=== PATIENT | male | born 1965 | race Caucasian/White ===

== ENCOUNTER 2017-08-01 09:07 | Day surgery (SDC) | payer BC ==
[2017-07-27 11:57] VITALS: BMI 27.7
[~2017-08-01 09:07] MED LIST: LACTATED RINGERS 1,000 ML IV SCH
[2017-08-01 10:54] VITALS: TEMP 97.2
[2017-08-01] MEDS ORDERED: LIDOCAINE 1% 20 ML VIAL (10MG/ML) FOR IV START INTRADERMA ONE (10:55)
[2017-08-01] MEDS ORDERED: PROPOFOL 10 MG/ML 20 ML VIAL IV ONE (11:53)
--- NOTE | 2017-08-01 11:56 | P.GSHP ---
History of Present Illness H&P Date: 08/01/17 Chief Complaint: GERD, screening colonoscopy This is a 52-year-old male for from Dr. Rick Albert. Patient presents today for EGD and colonoscopy. He's had issues with GERD. He has a strong family history of colon cancer with his father having colon cancer. Past Medical History Additional Past Medical History / Comment(s): KIDNEY STONES. History of Any Multi-Drug Resistant Organisms: None Reported Past Surgical History: Cholecystectomy Additional Past Surgical History / Comment(s): FUNMILAYO FUNDOPLICATION, LITHOTRIPSY Past Anesthesia/Blood Transfusion Reactions: No Reported Reaction Past Psychological History: Depression Smoking Status: Never smoker Past Alcohol Use History: Occasional Past Drug Use History: None Reported - Past Family History Father Family Medical History: Cancer Additional Family Medical History / Comment(s): COLON CANCER Medications and Allergies Home Medications Medication Instructions Recorded Confirmed Type Escitalopram [Lexapro] 20 mg PO DAILY 07/27/17 08/01/17 History Glucosam/Steffen-Msm1/C/Alfred/Bosw 1 each PO DAILY 07/27/17 08/01/17 History [Glucosamine-Chondroitin Tablet] Ibuprofen [Motrin] 600 mg PO Q8HR PRN 07/27/17 07/27/17 History Iron (Unknown Dose) 1 tab PO DAILY 07/27/17 07/27/17 History Lysine (Unknown Dose) 1 tab PO DAILY 07/27/17 08/01/17 History Multivitamins, Thera [Multivitamin 1 tab PO DAILY 07/27/17 08/01/17 History (formulary)] [place]-3 Fatty Acids/Fish Oil [Fish 1 each PO DAILY 07/27/17 08/01/17 History Oil 1,000 mg Softgel] Allergies Allergy/AdvReac Type Severity Reaction Status Date / Time No Known Allergies Allergy Verified 07/27/17 11:46 Surgical - Exam Vital Signs Temp Pulse Resp BP Pulse Ox 97.2 F L 64 16 129/85 99 08/01/17 10:52 08/01/17 10:52 08/01/17 10:52 08/01/17 10:52 08/01/17 10:52 - General well developed, no distress - Eyes PERRL - ENT normal pinna - Neck no masses - Respiratory normal expansion - Cardiovascular Rhythm: regular - Abdomen Abdomen: soft, non tender Assessment and Plan Plan: History of GERD. We'll perform EGD. Family history: Cancer. We'll perform screening colonoscopy.
[2017-08-01 12:29] VITALS: RESP 18
--- NOTE | 2017-08-01 12:38 | P.OP ---
Date of Procedure: 08/01/17 Preoperative Diagnosis: GERD Screening colonoscopy Postoperative Diagnosis: Diverticulosis ( No evidence of hiatal hernia No evidence of esophagitis Procedure(s) Performed: EGD Colonoscopy Anesthesia: MAC Surgeon: Edmond Santos Pathology: other (Antrum) Condition: stable Disposition: PACU Description of Procedure: Patient's placed on the endoscopy table in the lateral position. He received IV sedation. The gastroscope placed oropharynx and passed into the esophagus and into the stomach. Scope was then placed through the pylorus. The first and second portion of the duodenum appeared normal. Scope was then brought back the antrum this. Mildly inflamed. A biopsies performed. Scope was retroflexed and remainder of the stomach appeared normal. The hiatus was examined. There is no evidence of hiatal hernias. The GE junction was at 40 cm s. The distal esophagus appeared normal. The proximal esophagus appeared normal. Scope was then withdrawn for patient. Next digital rectal exam was performed which revealed no abnormalities. The flexible colonoscope was then placed patient anus passed throughout the entire colon. The ileocecal valve was visualized. Cecum, ascending and transverse colon appeared normal. In the descending and sigmoid colon there was evidence of diverticulosis without evidence of diverticulitis. The scope was then brought back the rectum. The rectum appeared normal. Scope was withdrawn for patient.
[2017-08-01 12:59] VITALS: BP 119/76; PULSE 50
== END 2017-08-01 12:58 | disposition home or self-care (01) ==
LOC: ORWHC2ENDO 09:07
PROVIDERS: ATTEND Surgery
DX: Z12.11 Encounter for screening for malignant neoplasm of colon (principal); K29.50 Unspecified chronic gastritis without bleeding; K57.30 Diverticulosis of large intestine without perforation or abscess without bleeding; K21.9 Gastro-esophageal reflux disease without esophagitis; Z80.0 Family history of malignant neoplasm of digestive organs; F32.9 Major depressive disorder, single episode, unspecified; N20.0 Calculus of kidney; Z79.899 Other long term (current) drug therapy
CPT/HCPCS: 88305; 88342; 43239; G0105; J2704

== ENCOUNTER → 2017-09-14 | Outpatient (CLI) | payer BC ==
--- NOTE | 2017-09-14 17:57 | US ---
EXAMINATION TYPE: US kidneys/renal and bladder DATE OF EXAM: 09/14/2017 COMPARISON: 09/14/2016 CLINICAL HISTORY: N20.0 Kidney Stones. EXAM MEASUREMENTS: Right Kidney: 12.7 x 5.1 x 5.6 cm Left Kidney: 11.7 x 5.9 x 6.6 cm Right Kidney: No hydronephrosis or masses seen Left Kidney: No hydronephrosis or masses seen, no definite stone seen. Bladder: wnl Bilateral Jets seen: only right jet seen in 3 minutes of scan time IMPRESSION: No hydronephrosis. No evidence of renal mass. Symmetric normal-appearing kidneys. No evidence of orlin l obstruction. No adverse change compared to old exam.
== END ==
LOC: RADUSWWP 16:27
PROVIDERS: ATTEND Urology
DX: N20.0 Calculus of kidney (principal)
CPT/HCPCS: 76770

== ENCOUNTER → 2019-09-17 | Outpatient (CLI) | payer OTHER ==
--- NOTE | 2019-09-18 08:07 | US ---
EXAMINATION TYPE: US renals and bladder DATE OF EXAM: 09/17/2019 COMPARISON: US 09/14/2017 CLINICAL HISTORY: N20.0 KIDNEYS STONES. Calculus of kidney. Hx lithotripsy. EXAM MEASUREMENTS: Right Kidney: 11.9 x 6.5 x 6.0 cm Left Kidney: 12.1 x 5.2 x 5.5 cm Right Kidney: No hydronephrosis or masses seen Left Kidney: No hydronephrosis or masses seen. Hypoechoic crescentic area left kidney is unchanged fr om 2017 represents perinephric fat stranding. Bladder: Not fully distended. Bilateral Jets seen: Yes IMPRESSION: No current hydronephrosis or nephrolithiasis.
== END ==
LOC: RADUSMAIN 17:06
PROVIDERS: ATTEND Urology
DX: N20.0 Calculus of kidney (principal); N40.1 Benign prostatic hyperplasia with lower urinary tract symptoms
CPT/HCPCS: 36415; 76770; 84153

== ENCOUNTER → 2023-12-13 | Outpatient (CLI) | payer BC ==
--- NOTE | 2023-12-13 17:29 | CT ---
EXAMINATION TYPE: CT abdomen pelvis wo con DATE OF EXAM: 12/13/2023 COMPARISON: 05/29/2012 HISTORY: 58-year-old male N2 0.0, left flank pain CT DLP: 563 mGycm. Automated exposure control for dose reduction was used. TECHNIQUE: Contiguous axial scanning of the abdomen and pelvis without IV contrast. Coronal and sagit desiree reconstructions performed. FINDINGS: Heart normal size without pericardial effusion. Lung bases are clear without pleural effusion. Post surgical change at the GE junction probably related to prior hiatal hernia repair. Noncontrast appearance of the liver, adrenal glands, right kidney, spleen, and pancreas within normal limits. Punctate 2 mm nonobstructive left renal calculus. There is moderate left-sided hydronephrosis with a 1.3 cm stone at the left UPJ. No dilated small bowel, free fluid, or free air. No mesenteric or retroperitoneal lymphadenopathy. Normal appendix. Mild overall stool burden. There is sigmoid diverticulosis. No pericolonic inflammat ory change. Prior mesh repair along the left lower quadrant and left inguinal region. Bladder partially distended. Bilateral pelvic phleboliths. Prostate gland is mildly enlarged at 4.2 c m. No abnormal fluid collection in the pelvis or pelvic lymphadenopathy. Bones: Mild degenerative change of both hips. Facet arthropathy mid to lower lumbar spine. DISH in th e lower thoracic spine. IMPRESSION: 1. A 1.3 cm stone at the left UPJ with moderate obstructive uropathy. Additional punctate 2 mm nonob structive left renal stone. 2. Sigmoid diverticulosis without acute diverticulitis. 3. Prior mesh repair left lower quadrant and left inguinal region. Additional prior surgery at the G E junction likely related to prior hiatal hernia repair.
== END | disposition home or self-care (01) ==
LOC: RADCTMAIN 16:16
PROVIDERS: ATTEND Urology
DX: N20.0 Calculus of kidney (principal); K57.30 Diverticulosis of large intestine without perforation or abscess without bleeding
CPT/HCPCS: 74176

== ENCOUNTER → 2025-04-08 | Outpatient (CLI) | payer BC ==
--- NOTE | 2025-04-08 18:13 | CT ---
EXAMINATION TYPE: CT abdomen pelvis wo con DATE OF EXAM: 04/08/2025 6:04 PM COMPARISON: Previous CT study 10/12/2024. CLINICAL INDICATION: Male, 59 years old with history of N20.0 KIDNEY STONE; H/O kidney stones, lithot ripsy done in December. Blood in urine now, stone suspected TECHNIQUE: Axial CT abdomen pelvis wo con;Sagittal and coronal reformats were created on a separate workstation. Oral contrast used: without Oral Contrast (none if empty) CT DLP: 596.5 mGycm, Automated exposure control for dose reduction was used. FINDINGS: LOWER CHEST: Unremarkable ABDOMEN LIVER: Unremarkable GALLBLADDER AND BILE DUCTS: The gallbladder is surgically absent. PANCREAS: Unremarkable. SPLEEN: Unremarkable. ADRENAL GLANDS: Unremarkable. KIDNEYS AND URETERS: 6 mm proximal right ureteral calculus causing upstream mild hydronephrosis (42/9 9). There is associated mild inflammatory changes surrounding the proximal right renal collecting sys tem and right kidney. No evidence of left-sided nephrolithiasis or hydronephrosis. Additional punctat e nonspecific right renal calculi. PELVIS BLADDER: No evidence for wall thickening or mass given limitations of exam. REPRODUCTIVE: Unremarkable. ABDOMEN & PELVIS STOMACH AND BOWEL: Stomach and duodenum are unremarkable. Postsurgical changes at the GE junction. Sc attered diverticula are noted throughout the colon. No evidence of bowel obstruction. Appendix unrema rkable. PERITONEUM/RETROPERITONEUM: No evidence of pneumoperitoneum or free fluid. VASCULATURE: No evidence of aortic aneurysm. MUSCULOSKELETAL: No acute osseous abnormalities LYMPH NODES: No gross evidence for lymphadenopathy. SOFT TISSUE/ABDOMINAL WALL: Previous left-sided lower anterior abdominal wall hernia repair. Small fa t-containing right inguinal hernia. IMPRESSION: 1. Proximal 6 mm right ureteral calculus causing mild upstream hydronephrosis and associated inflamm atory changes involving the right ureter and right kidney. 2. Additional punctate nonobstructing calculi within the right kidney. 3. Colonic diverticulosis. [facility], , 04/08/2025 6:11 PM
== END | disposition home or self-care (01) ==
LOC: RADCTMAIN 17:40
PROVIDERS: ATTEND Urology
DX: N13.2 Hydronephrosis with renal and ureteral calculous obstruction (principal); K57.30 Diverticulosis of large intestine without perforation or abscess without bleeding
CPT/HCPCS: 74176

== ENCOUNTER → 2025-04-11 | Outpatient (CLI) | payer BC | END | disposition home or self-care (01) | LOC: LABWHC1 13:18 | PROVIDERS: ATTEND Urology | DX: R35.1 Nocturia (principal) | CPT/HCPCS: 88108 ==